=== PATIENT | female | born 1955 | race Caucasian/White ===

== ENCOUNTER 2023-11-12 08:43 | Outpatient (OUT) | payer MEDICARE, SELFPAY ==
--- NOTE | 2023-11-12 08:47 | MM_ITS ---
Patient Name: AKOSUA HENAO MR#: [id number] : 1955 Exam Date: 11/12/2023 Ordering Doctor: DR MICHAEL RUTH M.D. RADIOLOGY REPORT PROCEDURE: MM TOMOSYNTHESIS SCREENING BI COMPARISON: MG MAMM SCREEN [place] W CAD, 04/18/2020. MG MAMM SCREEN 3D [place] CAD, 04/20/2021. INDICATIONS: Screening Calculator Name NCI Breast Cancer Risk Assessment Tool 5 Year Breast Cancer Risk 1.50% Lifetime Breast Cancer Risk 5.20% Personal Breast Cancer No Personal Ovarian Cancer No Treatments None Family Cancers None LOCATION: [facility] BREAST COMPOSITION: Heterogeneously dense,which may obscure small masses. FINDINGS: DIAGNOSTIC CATEGORY 2--BENIGN FINDING. NO CHANGE FROM COMPARISON. Scattered benign-appearing calcifications are present. Scattered benign-appearing lymph nodes are present. RIGHT BREAST: No significant suspicious finding. Stable nodule upper outer quadrant, mid breast LEFT BREAST: No significant suspicious finding. RECOMMENDATIONS: ROUTINE MAMMOGRAM AND CLINICAL EVALUATION IN 12 MONTHS. PLEASE NOTE: A NORMAL MAMMOGRAM DOES NOT EXCLUDE THE POSSIBILITY OF BREAST CANCER. A CLINICALLY SUSPICIOUS PALPABLE LUMP SHOULD BE BIOPSIED. Dictated by: Jared Martin MD on 11/12/2023 at 09:46 Approved by: Jared Martin MD on 11/12/2023 at 09:49
== END 2023-11-12 08:44 | disposition home or self-care (01) ==
LOC: MAMMO 08:43
PROVIDERS: PCP Family Medicine; Visit Provider Family Medicine
DX: Z12.31 Encounter for screening mammogram for malignant neoplasm of breast (principal)
CPT/HCPCS: 77063; 77067

== ENCOUNTER 2024-02-04 13:42 | Emergency (ER) | payer MEDICARE, SELFPAY ==
[2024-02-04] VITALS (14 sets, daily range): BP systolic 160–186; BP diastolic 83–96; PULSE 65–79; TEMP 36.6; O2SAT 94–97; BMI 25.0
--- NOTE | 2024-02-04 14:03 | ECG_ITS ---
[facility] Test Date: 2024-02-04 Pat Name: AKOSUA HENAO Department: Room: - Gender: Female [employer]: : 1955 Requested By: MICHAEL RUTH Order Number: [id number] Reading MD: MEGAN AVILA Measurements Intervals [place] Rate: 69 P: 70 AL: 124 QRS: 74 QRSD: 80 T: 52 QT: 390 QTc: 409 Interpretive Statements 1100 Sinus rhythm 4068 Nonspecific [place] abnormality 9130 borderline ECG No previous ECG available for comparison Electronically Signed On 02-04-2024 23:14:24 EDT by MEGAN AVILA
--- NOTE | 2024-02-04 14:22 | ED_ITS ---
HPI - Seizure General Chief Complaint: Seizure Stated Complaint: SEIZURE Time Seen by Provider: 02/04/24 14:13 Source: patient and family Mode of arrival: walk-in Limitations: no limitations History of Present Illness HPI Narrative: Patient is a 68-year-old female with a history of hypertension who presents to the emergency department for witnessed seizure activity. Her states that they typically lay down for a nap after lunch. Patient heard a clicking noise outside of the door and when the went to investigate, he returned to find the patient in bed having witnessed seizure activity where her right hand was clenched onto her chest and her left hand was clenching the bed sheets, her eyes were rolled back in her head and she was shaking mildly. She had no dental injury or urinary incontinence. On waking, she has no headache, visual changes. She had no falls or injuries. She has had no recent illness. She has been compliant with her Keppra. She sees advanced neurology for regular care. Her last seizure was in 2015 and she has only had 1 previous seizure to that in 2009. 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 She has no focal medical complaints at this time. Related Data Home Medications ?Medication ?Instructions ?Recorded ?Confirmed atorvastatin 20 mg tablet 20 mg PO DAILY 02/04/24 02/04/24 ergocalciferol (vitamin D2) 1,250 50,000 unit PO .COMPLEX 02/04/24 02/04/24 mcg (50,000 unit) capsule levetiracetam 250 mg tablet 250 mg PO TID 02/04/24 02/04/24 levothyroxine 25 mcg tablet 25 mcg PO DAILY 02/04/24 02/04/24 lorazepam 1 mg tablet 1.5 mg PO .COMPLEX 02/04/24 02/04/24 mirabegron 25 mg tablet,extended 25 mg PO DAILY 02/04/24 02/04/24 release 24 hr (Myrbetriq) Allergies Allergy/AdvReac Type Severity Reaction Status Date / Time No Known Drug Allergies Allergy Verified 02/04/24 13:53 Review of Systems ROS Constitutional Denies: fever or chills Eyes Denies: change in vision Ears, nose, mouth, and throat Denies: throat pain or nasal congestion Cardiovascular Denies: chest pain Respiratory Denies: shortness of breath or cough Gastrointestinal Denies: nausea or vomiting Integumentary/Breast Denies: rash Neurological Denies: headache Hematologic/Lymphatic Denies: easy bruising or easy bleeding Exam Narrative Exam Narrative: Gen.: Awake, alert, in no distress Head: Normocephalic, atraumatic ENT: Moist mucous membranes, No dental injury Respiratory: No respiratory distress, lungs clear bilaterally Cardio: Regular rate and rhythm Extremities: Moves extremities equally, no injuries noted Psych: Normal mood and affect Neuro: No focal neuro deficit Skin: Warm, dry, intact Constitutional Vital Signs, click to edit/add: Last Vital Signs Temp 97.9 F 02/04/24 13:53 Pulse 72 02/04/24 15:20 Resp 15 02/04/24 13:53 BP 164/88 H 02/04/24 15:17 Pulse Ox 96 02/04/24 15:17 O2 Del Method Room Air 02/04/24 13:53 Course Vital Signs Vital signs: Vital Signs Temperature 97.9 F 02/04/24 13:53 Pulse Rate 79 02/04/24 13:53 Respiratory Rate 15 02/04/24 13:53 Blood Pressure 186/96 H 02/04/24 13:53 Pulse Oximetry 95 02/04/24 13:53 Oxygen Delivery Method Room Air 02/04/24 13:53 Temperature 97.9 F 02/04/24 13:53 Pulse Rate 72 02/04/24 15:20 Respiratory Rate 15 02/04/24 13:53 Blood Pressure 164/88 H 02/04/24 15:17 Pulse Oximetry 96 02/04/24 15:17 Oxygen Delivery Method Room Air 02/04/24 13:53 MDM - Seizure MDM Narrative Medical decision making narrative: Blood pressure improved on recheck. Remainder of the vital signs are normal.Lab studies within normal limits. Patient with no focal medical complaints in the ER, treated with Keppra bolus, follow-up with the advanced neurology for further instruction. Return to the ER if symptoms change or worsen. Medical Records Attestation: I reviewed the patient's medical records. Lab Data Attestation: I reviewed the patient's lab results. Labs: Lab Results 02/04/24 Range/Units 14:31 WBC 6.3 (4.0-11.0) 10^3/uL RBC 4.99 (4.20-5.40) 10^6/uL Hgb 14.0 (12.0-16.0) g/dL Hct 43.2 (36.0-48.0) % MCV 86.6 (81.0-99.0) fL MCH 28.1 (26.7-34.0) pg MCHC 32.4 (29.9-35.2) g/dL RDW 12.0 (11.0-15.0) % Plt Count 221 (150-450) 10^3/uL MPV 9.5 (9.5-13.5) fL Neut % (Auto) 46.9 (43.0-75.0) % Lymph % (Auto) 39.8 (20.5-60.0) % [place] % (Auto) 10.0 (1.7-12.0) % Eos % (Auto) 2.8 (0.9-7.0) % Baso % (Auto) 0.3 (0.2-2.0) % Neut # (Auto) 3.0 (1.4-6.5) 10^3/uL Lymph # (Auto) 2.5 (1.2-3.8) 10^3/uL [place] # (Auto) 0.6 (0.3-0.8) 10^3/uL Eos # (Auto) 0.2 (0.0-0.7) 10^3/uL Baso # (Auto) 0.0 (0.0-0.1) 10^3/uL Abs Immat Gran (auto) 0.01 (0.00-0.03) 10^3/uL Imm/Tot Granulo (auto) 0.2 (0.0-0.5) % Sodium 144 (136-145) mmol/L Potassium 3.6 (3.5-5.1) mmol/L Chloride 104 (98-107) mmol/L Carbon Dioxide 30.9 (21.0-32.0) mmol/L Anion Gap 12.7 BUN 18.0 (7.0-18.0) mg/dL Creatinine 0.89 (0.55-1.02) mg/dL Est GFR ( Amer) >60 (>=60) Est GFR (Non-Af Amer) >60 (>=60) BUN/Creatinine Ratio 20.2 Glucose 127 H (74-106) mg/dL Calcium 9.6 (8.5-10.1) mg/dL Magnesium 1.9 (1.8-2.4) mg/dL Total Bilirubin 0.4 (0.2-1.0) mg/dL AST 18 (15-37) U/L ALT 22 (14-59) U/L Alkaline Phosphatase 74 (46-116) U/L Total Protein 7.1 (6.4-8.2) g/dL Albumin 3.5 (3.4-5.0) g/dL Globulin 3.6 g/dL Albumin/Globulin Ratio 1.0 Discharge Plan Discharge Stand Alone Forms: Portal Instructions Chief Complaint: Seizure Clinical Impression: Seizure Patient Disposition: Home, Self-Care Time of Disposition Decision: 15:22 Condition: Good Prescriptions / Home Meds: No Action atorvastatin 20 mg tablet 20 mg PO DAILY ergocalciferol (vitamin D2) 1,250 mcg (50,000 unit) capsule 50,000 unit PO .COMPLEX Rx Instructions: 50,000 units orally once a week; levetiracetam 250 mg tablet 250 mg PO TID levothyroxine 25 mcg tablet 25 mcg PO DAILY lorazepam 1 mg tablet 1.5 mg PO .COMPLEX Rx Instructions: 1.5 mg orally 1.5 mg at bedtime; Myrbetriq 25 mg tablet extended release 24 hr 25 mg PO DAILY Print Language: Lithuanian Instructions: Nonepileptic Seizures (ED) Referrals: Elliott Lema DO [Physician] - 1 week MICHAEL RUTH [Primary Care Provider] - 1 week
--- NOTE | 2024-02-04 14:41 | PC.NURSE ---
pt AxOx4 at this time. per pt's , pt and him were in bedroom getting reafdy to take a nap and pt started to have seizure. Eyes rolled into back of head, R arm was clenched in decorticate and L arm down by leg and upper half of body was shaking. Denies any injuries during this or loss of bowel/bladder. Pt's last seizure was back in 2009. Sees Dr Sullivan for neurology.
[2024-02-04 14:44] LABS: Basophils Percent Auto 0.3 % (0.2-2.0); Eosinophils Absolute Auto 0.2 10^3/uL (0.0-0.7); Eosinophils Percent Auto 2.8 % (0.9-7.0); Hematocrit 43.2 % (36.0-48.0); Immature Granulocytes Abs Auto 0.01 10^3/uL (0.00-0.03); Immature Granulocytes Pct Auto 0.2 % (0.0-0.5); Lymphocytes Absolute Auto 2.5 10^3/uL (1.2-3.8); Lymphocytes Percent Auto 39.8 % (20.5-60.0); Mean Corpuscular HGB Conc 32.4 g/dL (29.9-35.2); Mean Corpuscular Hemoglobin 28.1 pg (26.7-34.0); Mean Corpuscular Volume 86.6 fL (81.0-99.0); Mean Platelet Volume 9.5 fL (9.5-13.5); Monocytes Absolute Auto 0.6 10^3/uL (0.3-0.8); Neutrophils Percent Auto 46.9 % (43.0-75.0); Platelet Count 221 10^3/uL (150-450); Red Blood Count 4.99 10^6/uL (4.20-5.40); White Blood Count 6.3 10^3/uL (4.0-11.0)
[2024-02-04] MEDS: LEVETIRACETAM 1,000 MG in 0.9 % SODIUM CHLORIDE 100 ML 440 MG IV (14:50)
[2024-02-04 15:06] LABS: Alanine Aminotransferase 22 U/L (14-59); Albumin Level 3.5 g/dL (3.4-5.0); Alkaline Phosphatase 74 U/L (46-116); Anion Gap 12.7; Aspartate Amino Transferase 18 U/L (15-37); BUN Creatinine Ratio 20.2; Bilirubin Total 0.4 mg/dL (0.2-1.0); Calcium 9.6 mg/dL (8.5-10.1); Carbon Dioxide 30.9 mmol/L (21.0-32.0); Chloride 104 mmol/L (98-107); Estimated GFR (African America >60 (>=60); Estimated GFR (Non-African Ame >60 (>=60); Globulin 3.6 g/dL; Glucose 127 mg/dL (74-106); Magnesium 1.9 mg/dL (1.8-2.4); Potassium 3.6 mmol/L (3.5-5.1); Sodium 144 mmol/L (136-145); Total Protein 7.1 g/dL (6.4-8.2)
[2024-02-07 13:11] LABS: Levetiracetam (Keppra), S 2.8 ug/mL (10.0-40.0)
--- NOTE | 2024-02-08 15:33 | PC.NURSE ---
02/08/24 1533 pt keppra level reviewed by dr martinez order to fax to pcp, did as requested. dr valentine faxed results. John Bauman RN.
== END 2024-02-04 15:45 | disposition home or self-care (01) ==
PROVIDERS: Physician Assistant; Emergency Provider Emergency Medicine Emergency Medical Services; PCP Family Medicine
DX: G40.909 Epilepsy, unspecified, not intractable, without status epilepticus (principal); I10 Essential (primary) hypertension; Z87.820 Personal history of traumatic brain injury; Z79.899 Other long term (current) drug therapy; Z79.890 Hormone replacement therapy
CPT/HCPCS: 36415; 80053; 80177; 83735; 85025; 93005; 96365; 99284

== ENCOUNTER 2025-02-11 10:02 | Outpatient (OUT) | payer MEDICARE, SELFPAY ==
--- OUTSIDE RECORDS SUMMARY | 2025-02-11 10:06 | XMS_ITS | CCD ---
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 IPD, CMP, TSH reflex FT4, CBCAD, VITD #### [facility] [address], [place] [id number] Erythrocyte distribution width (RBC) [Ratio] 12.3 % Normal 11.0-15.0 [facility] Comment on above: Performed By: #### L IPD, CMP, TSH reflex FT4, CBCAD, VITD #### [facility] [address], [place] [id number] Hematocrit (Bld) [Volume fraction] 43.2 % Normal 35.0-47.0 [facility] Comment on above: Performed By: #### L IPD, CMP, TSH reflex FT4, CBCAD, VITD #### [facility] [address], [place] [id number] Hemoglobin (Bld) [Mass/Vol] 14.1 g/dL Normal 11.6-15.5 [facility] Comment on above: Performed By: #### L IPD, CMP, TSH reflex FT4, CBCAD, VITD #### [facility] [address], [place] [id number] Lymphocytes (Bld) [#/Vol] 2.8 10*3/uL Normal 0.9-3.9 [facility] Comment on above: Performed By: #### L IPD, CMP, TSH reflex FT4, CBCAD, VITD #### [facility] [address], [place] [id number] Lymphocytes/100 WBC (Bld) 41.3 % Normal [facility] Comment on above: Performed By: #### L IPD, CMP, TSH reflex FT4, CBCAD, VITD #### [facility] [address], [place] [id number] MCH (RBC) [Entitic mass] 28.0 pg Normal 27.0-33.0 [facility] Comment on above: Performed By: #### L IPD, CMP, TSH reflex FT4, CBCAD, VITD #### [facility] [address], [place] [id number] MCHC (RBC) [Mass/Vol] 32.6 g/dL Normal 32.0-36.0 [facility] Comment on above: Performed By: #### L IPD, CMP, TSH reflex FT4, CBCAD, VITD #### [facility] [address], [place] [id number] MCV (RBC) [Entitic vol] 86 fL Normal 80-100 [facility] Comment on above: Performed By: #### L IPD, CMP, TSH reflex FT4, CBCAD, VITD #### [facility] [address], [place] [id number] Monocytes (Bld) [#/Vol] 0.6 10*3/uL Normal 0.2-0.9 [facility] Comment on above: Performed By: #### L IPD, CMP, TSH reflex FT4, CBCAD, VITD #### [facility] [address], [place] [id number] Monocytes/100 WBC (Bld) 9.0 % Normal [facility] Comment on above: Performed By: #### L IPD, CMP, TSH reflex FT4, CBCAD, VITD #### [facility] [address], [place] [id number] Neutrophils (Bld) [#/Vol] 3.2 10*3/uL Normal 1.5-7.8 [facility] Comment on above: Performed By: #### L IPD, CMP, TSH reflex FT4, CBCAD, VITD #### [facility] [address], [place] [id number] Neutrophils/100 WBC (Bld) 46.2 % Normal [facility] Comment on above: Performed By: #### L IPD, CMP, TSH reflex FT4, CBCAD, VITD #### [facility] [address], [place] [id number] Platelet mean volume (Bld) [Entitic vol] 9.80 fL Normal 7.50-12.50 [facility] Specialist Comment on above: Performed By: #### L IPD, CMP, TSH reflex FT4, CBCAD, VITD #### [facility] [address], [place] [id number] Platelets (Bld) [#/Vol] 272 10*3/uL Normal 140-400 [facility] Comment on above: Performed By: #### L IPD, CMP, TSH reflex FT4, CBCAD, VITD #### [facility] [address], [place] [id number] RBC (Bld) [#/Vol] 5.03 10*6/uL Normal 3.90-5.20 [facility] [facility] Comment on above: Performed By: #### L IPD, CMP, TSH reflex FT4, CBCAD, VITD #### [facility] [address], [place] [id number] RDW-SD 38.5 fL Normal 37.0-50.0 [facility] Comment on above: Performed By: #### L IPD, CMP, TSH reflex FT4, CBCAD, VITD #### [facility] [address], [place] [id number] WBC (Bld) [#/Vol] 6.9 10*3/uL Normal 3.8-11.0 [facility] Concession Manager Comment on above: Performed By: #### L IPD, CMP, TSH reflex FT4, CBCAD, VITD #### [facility] [address], [place] [id number] Comprehensive Metabolic Pane [facility] 01-05-2022 Albumin [Mass/Vol] 4.6 g/dL Normal 3.6-5.1 [facility] [employer] Manager Comment on above: Performed By: #### L IPD, CMP, TSH reflex FT4, CBCAD, VITD #### [facility] [address], [place] [id number] Albumin/Globulin [Mass ratio] 1.9 {ratio} Normal 1.0-2.5 [facility] Comment on above: Performed By: #### L IPD, CMP, TSH reflex FT4, CBCAD, VITD #### [facility] [address], [place] [id number] ALP [Catalytic activity/Vol] 72 U/L Normal 35-119 [facility] Special[facility] Comment on above: Performed By: #### L IPD, CMP, TSH reflex FT4, CBCAD, VITD #### [facility] [address], [place] [id number] ALT [Catalytic activity/Vol] 15 U/L Normal 6-33 [facility] Comment on above: Result Comment: 09/27 Female reference range changed. Performed By: #### L IPD, CMP, TSH reflex FT4, CBCAD, VITD #### [facility] [address], [place] [id number] Anion gap [Moles/Vol] 17 mmol/L Normal 12-20 [facility] Comment on above: Result Comment: Effe ctive 11/02/2019 reference range changed. Performed By: #### L IPD, CMP, TSH reflex FT4, CBCAD, VITD #### [facility] [address], [place] [id number] AST [Catalytic activity/Vol] 21 U/L Normal 9-34 [facility] Comment on above: Performed By: #### L IPD, CMP, TSH reflex FT4, CBCAD, VITD #### [facility] [address], [place] [id number] Bilirubin [Mass/Vol] 0.48 mg/dL Normal 0.30-1.20 [place] Comment on above: Performed By: #### L IPD, CMP, TSH reflex FT4, CBCAD, VITD #### [facility] [address], [place] [id number] BUN/CREA 30 Ratio High 6-22 [facility] Comment on above: Performed By: #### L IPD, CMP, TSH reflex FT4, CBCAD, VITD #### [facility] [address], [place] [id number] Calcium [Mass/Vol] 9.6 mg/dL Normal 8.6-10.2 [facility] Comment on above: Performed By: #### L IPD, CMP, TSH reflex FT4, CBCAD, VITD #### [facility] [address], [place] [id number] Chloride [Moles/Vol] 106 mmol/L Normal 98-107 [place] Comment on above: Performed By: #### L IPD, CMP, TSH reflex FT4, CBCAD, VITD #### [facility] [address], [place] [id number] CO2 [Moles/Vol] 26 mmol/L Normal 20-31 [facility] Special[facility] Comment on above: Performed By: #### L IPD, CMP, TSH reflex FT4, CBCAD, VITD #### [facility] [address], [place] [id number] Creatinine [Mass/Vol] 0.8 mg/dL Normal 0.6-1.4 [facility] Comment on above: Performed By: #### L IPD, CMP, TSH reflex FT4, CBCAD, VITD #### [facility] [address], [place] [id number] eGFRAA 94 mL/min/1.73m2 Normal >60 [facility] Specialist Comment on above: Performed By: #### L IPD, CMP, TSH reflex FT4, CBCAD, VITD #### [facility] [address], [place] [id number] eGFRNAA 78 mL/min/1.73m2 Normal >60 [facility] Specialist Comment on above: Performed By: #### L IPD, CMP, TSH reflex FT4, CBCAD, VITD #### [facility] [address], [place] [id number] Globulin (S) [Mass/Vol] 2.4 g/dL Normal 1.9-3.7 [facility] Special[facility] Comment on above: Performed By: #### L IPD, CMP, TSH reflex FT4, CBCAD, VITD #### [facility] [address], [place] [id number] Glucose [Mass/Vol] 105 mg/dL High 65-99 [facility] Comment on above: Result Comment: For FASTING Glucose --- ADA reference ranges: Normal 65-99 mg/dl Prediabetes 100-125 Diabetes >/= 126 Performed By: #### L IPD, CMP, TSH reflex FT4, CBCAD, VITD #### [facility] [address], [place] [id number] Potassium [Moles/Vol] 4.1 mmol/L Normal 3.5-5.5 [facility] Comment on above: Performed By: #### L IPD, CMP, TSH reflex FT4, CBCAD, VITD #### [facility] [address], [place] [id number] Protein [Mass/Vol] 7.0 g/dL Normal 6.1-8.1 [facility] [place] [facility] [employer] [facility] Comment on above: Performed By: #### L IPD, CMP, TSH reflex FT4, CBCAD, VITD #### [facility] [address], [place] [id number] Sodium [Moles/Vol] 144 mmol/L Normal 135-146 [facility] [place] [facility] [employer] [facility] Comment on above: Performed By: #### L IPD, CMP, TSH reflex FT4, CBCAD, VITD #### [facility] [address], [place] [id number] Urea nitrogen [Mass/Vol] 23 mg/dL Normal 7-25 [facility] Comment on above: Performed By: #### L IPD, CMP, TSH reflex FT4, CBCAD, VITD #### [facility] [address], [place] [id number] Lipid Panelon 01-05-2022 Cholesterol [Mass/Vol] 185 mg/dL Normal 125-200 [facility] Comment on above: Result Comment: Low risk < 200mg/dL Borderline risk 201-239 mg/dl High risk > or equal to 240 Performed By: #### L IPD, CMP, TSH reflex FT4, CBCAD, VITD #### [facility] [address], [place] [id number] Cholesterol in HDL [Mass/Vol] 70 mg/dL Normal >40 [facility] Comment on above: Result Comment: High Cardiovascular Risk HDL <40 mg/dL Low Cardiovascular Risk HDL > or equal to 60 mg/dl Performed By: #### L IPD, CMP, TSH reflex FT4, CBCAD, VITD #### [facility] [address], [place] [id number] Cholesterol in LDL [Mass/Vol] 103 mg/dL Normal [facility] [facility] Comment on above: Result Comment: LDL ATP III CLASSIFICATION LDL less than 100 mg/dl Optimal LDL 100-129 mg/dl Near or above optimal LDL 130-159 Borderline high LDL 160-189 High LDL greater than 189 mg/dl Very High Performed By: #### L IPD, CMP, TSH reflex FT4, CBCAD, VITD #### [facility] [address], [place] [id number] Cholesterol in VLDL [Mass/Vol] 12 mg/dL Normal [facility] Comment on above: Performed By: #### L IPD, CMP, TSH reflex FT4, CBCAD, VITD #### [facility] [address], [place] [id number] Cholesterol.total/Ch olesterol in HDL [Mass ratio] 3 {ratio} Normal [facility] Comment on above: Performed By: #### L IPD, CMP, TSH reflex FT4, CBCAD, VITD #### [facility] [address], [place] [id number] Triglyceride [Mass/Vol] 58 mg/dL Normal 30-150 [facility] Specialist Comment on above: Result Comment: TRIG ATPIII CLASSIFICATIONS TRIG less than 150 mg/dl Normal TRIG 150-199 mg/dl Borderline High TRIG 200-500 mg/dl High TRIG greather than 500 mg/dl Very High Performed By: #### L IPD, CMP, TSH reflex FT4, CBCAD, VITD #### [facility] [address], [place] [id number] TSH w/ Reflex to Free T4on 0 01-05-2022 TSH 4.340 uIU/mL Normal 0.400-4.500 [facility] Specialist Comment on above: Performed By: #### L IPD, CMP, TSH reflex FT4, CBCAD, VITD #### [facility] [address], [place] [id number] Vitamin D 25-OHon 01-05-2022 VIT D 25 OH 88 ng/ml Normal >29 [facility] Specialist Comment on above: Result Comment: Meri min D Status Deficiency <20 ng/mL Insufficiency 20-29 ng/mL Optimal 30-100 ng/mL Possible Toxicity >=150 ng/mL Performed By: #### L IPD, CMP, TSH reflex FT4, CBCAD, VITD #### [facility] [address], [place] [id number] Vital Signs Date Time Vital Sign Value Performing Clinician Facility 01-21-2025 08:06-0400 Body height 167.6 cm Vikram Sullivan MD Work Phone: [facility] 01-21-2025 08:06-0400 Body mass index (BMI) [Ratio] 24.37 kg/m2 Vikram Sullivan MD Work Phone: [facility] 01-21-2025 08:06-0400 Body weight 68.49 kg Vikram Sullivan MD Work Phone: [facility] 01-21-2025 08:06-0400 Diastolic blood pressure 86 mm[Hg] Vikram Sullivan MD Work Phone: [facility] 01-21-2025 08:06-0400 Systolic blood pressure 130 mm[Hg] Vikram Sullivan MD Work Phone: [facility] 10-12-2024 11:22-0500 Body mass index (BMI) [Ratio] 24.05 kg/m2 Vikram Sullivan MD Work Phone: [facility] 10-12-2024 11:22-0500 Body weight 67.59 kg Vikram Sullivan MD Work Phone: [facility] 10-12-2024 11:22-0500 Diastolic blood pressure 87 mm[Hg] Vikram Sullivan MD Work Phone: [facility] 10-12-2024 11:22-0500 Heart rate 65 /min Vikram Sullivan MD Work Phone: [facility] 10-12-2024 11:22-0500 Systolic blood pressure 146 mm[Hg] Vikram Sullivan MD Work Phone: [facility] 09-08-2024 11:01-0500 Body mass index (BMI) [Ratio] 23.4 kg/m2 Lobo Cisneros MD Work Phone: [facility] 09-08-2024 11:01-0500 Body weight 65.77 kg Lobo Cisneros MD Work Phone: [facility] 09-08-2024 11:01-0500 Diastolic blood pressure 76 mm[Hg] Lobo Cisneros MD Work Phone: [facility] 09-08-2024 11:01-0500 Systolic blood pressure 120 mm[Hg] Lobo Cisneros MD Work Phone: [facility] 08-10-2024 09:26-0400 Body height 167.6 cm Naeem Ruth MD Work Phone: [facility] 08-10-2024 09:26-0400 Body mass index (BMI) [Ratio] 23.4 kg/m2 Naeem Ruth MD Work Phone: [facility] 08-10-2024 09:26-0400 Body weight 65.77 kg Naeem Ruth MD Work Phone: [facility] 08-10-2024 09:26-0400 Diastolic blood pressure 88 mm[Hg] Naeem Ruth MD Work Phone: [facility] 08-10-2024 09:26-0400 Heart rate 63 /min Naeem Ruth MD Work Phone: [facility] 08-10-2024 09:26-0400 SaO2% (BldA) [Mass fraction] 94 % Naeem Ruth MD Work Phone: [facility] 08-10-2024 09:26-0400 Systolic blood pressure 138 mm[Hg] Naeem Ruth MD Work Phone: [facility] 07-09-2024 10:28-0400 Body height 167.6 cm Vikram Sullivan MD Work Phone: [facility] 07-09-2024 10:28-0400 Body mass index (BMI) [Ratio] 23.73 kg/m2 Vikram Sullivan MD Work Phone: [facility] 07-09-2024 10:28-0400 Body weight 66.68 kg Vikram Sullivan MD Work Phone: [facility] 07-09-2024 10:28-0400 Diastolic blood pressure 82 mm[Hg] Vikram Sullivan MD Work Phone: [facility] 07-09-2024 10:28-0400 Systolic blood pressure 116 mm[Hg] Vikram Sullivan MD Work Phone: [facility] 06-16-2024 13:30-0400 Body height 167.6 cm Naeem Ruth MD Work Phone: [facility] 06-16-2024 13:30-0400 Body mass index (BMI) [Ratio] 23.73 kg/m2 Naeem Ruth MD Work Phone: [facility] 06-16-2024 13:30-0400 Body weight 66.68 kg Naeem Ruth MD Work Phone: [facility] 06-16-2024 13:30-0400 Diastolic blood pressure 72 mm[Hg] Naeem Ruth MD Work Phone: [facility] 06-16-2024 13:30-0400 Heart rate 66 /min Naeem Ruth MD Work Phone: [facility] 06-16-2024 13:30-0400 SaO2% (BldA) [Mass fraction] 97 % Naeem Ruth MD Work Phone: [facility] 06-16-2024 13:30-0400 Systolic blood pressure 132 mm[Hg] Naeem Ruth MD Work Phone: [facility] 08-30-2023 11:30-0400 Diastolic blood pressure 84 mm[Hg] MD Lauryn Owens Work Phone: [facility] 08-30-2023 11:30-0400 Heart rate 60 /min MD Lauryn Owens Work Phone: [facility] 08-30-2023 11:30-0400 Respiratory rate 16 /min MD Lauryn Owens Work Phone: [facility] 08-30-2023 11:30-0400 SaO2% (BldA) [Mass fraction] 98 % MD Lauryn Owens Work Phone: [facility] 08-30-2023 11:30-0400 Systolic blood pressure 141 mm[Hg] MD Lauryn Owens Work Phone: [facility] 08-30-2023 08:33-0400 Body height 167.64 cm MD Lauryn Owens Work Phone: [facility] 08-30-2023 08:33-0400 Body weight 66.67 kg MD Lauryn Owens Work Phone: [facility] 06-13-2023 10:15-0400 Diastolic blood pressure 87 mm[Hg] MD Lauryn Owens Work Phone: [facility] 06-13-2023 10:15-0400 Heart rate 61 /min MD Lauryn Owens Work Phone: [facility] 06-13-2023 10:15-0400 Respiratory rate 16 /min MD Lauryn Owens Work Phone: [facility] 06-13-2023 10:15-0400 SaO2% (BldA) [Mass fraction] 97 % MD Lauryn Owens Work Phone: [facility] 06-13-2023 10:15-0400 Systolic blood pressure 148 mm[Hg] MD Lauryn Owens Work Phone: [facility] 06-13-2023 08:22-0400 Body height 167.64 cm MD Lauryn Owens Work Phone: [facility] 06-13-2023 08:22-0400 Body weight 68.03 kg MD Lauryn Owens Work Phone: [facility] Encounters Encounter Date Encounter Type Care Provider Facility Start: 02-09-2025 End: 02-09-2025 Telephone encounter Naeem Ruth MD Work Phone: [facility] Start: 01-21-2025 End: 01-21-2025 Office outpatient visit 15 minutes Sunita Barragan MD Work Phone: [facility] Comment on above: Seborrheic keratosis (Primary Dx); Lentigines; Capillary angioma; Seborrheic keratosis, inflamed; Neoplasm of unspecified behavior of bone, soft tissue, and skin Start: 01-21-2025 End: 01-21-2025 ambulatory SUNITA BARRAGAN Not Available Start: 01-21-2025 End: 01-21-2025 Office outpatient visit 25 minutes Vikram Sullivan MD Work Phone: [facility] Comment on above: History of traumatic brain injury (Primary Dx); Partial idiopathic epilepsy with seizures of localized onset, not intractable, without status epilepticus; Migraine without status migrainosus, not intractable, unspecified migraine type (CMS/HCC) Start: 01-21-2025 End: 01-21-2025 ambulatory VIKRAM SULLIVAN Not Available Start: 01-18-2025 End: 01-18-2025 ambulatory NAEEM RUTH Not Available Start: 10-12-2024 End: 10-12-2024 Bamboo flowsheet Vikram Sullivan MD Work Phone: [facility] Start: 10-12-2024 End: 10-12-2024 Bamboo flowsheet Vikram Sullivan MD Work Phone: [facility] Start: 10-12-2024 End: 10-12-2024 Office outpatient visit 25 minutes Vikram Sullivan MD Work Phone: [facility] Comment on above: History of traumatic brain injury (Primary Dx); Partial idiopathic epilepsy with seizures of localized onset, not intractable, without status epilepticus (HCC) (CMS/HCC); Migraine without status migrainosus, not intractable, unspecified migraine type (CMS/HCC) Start: 10-12-2024 End: 10-12-2024 ambulatory VIKRAM SULLIVAN Not Available Start: 09-08-2024 End: 09-08-2024 Bamboo flowsheet Lobo Cisneros MD Work Phone: [facility] Start: 09-08-2024 End: 09-08-2024 Bamboo flowsheet Lobo Cisneros MD Work Phone: [facility] Start: 09-08-2024 End: 09-08-2024 Patient encounter procedure Lobo Cisneros MD Work Phone: [facility] Comment on above: Well woman exam with routine gynecological exam; Cervical cancer screening; Other screening mammogram Start: 09-08-2024 End: 09-08-2024 ambulatory LOBO CISNEROS Not Available Start: 08-10-2024 End: 08-10-2024 Office outpatient visit 25 minutes Naeem Ruth MD Work Phone: [facility] Comment on above: Osteopenia of both h ips (Primary Dx); Hypothyroidism, unspecified type (CMS/HCC) Start: 08-10-2024 End: 08-10-2024 ambulatory NAEEM RUTH Not Available Start: 08-03-2024 End: 08-03-2024 Refill Vikram Sullivan MD Work Phone: [facility] Comment on above: BPPV (benign paroxys mal positional vertigo), right; Nonintractable epilepsy without status epilepticus, unspecified epilepsy type (CMS/HCC); Insomnia due to medical condition Start: 07-09-2024 End: 07-09-2024 [employer] Vikram Sullivan MD Work Phone: [facility] Start: 07-09-2024 End: 07-09-2024 [employer] Sullivan MD Work Phone: [facility] Start: 07-09-2024 End: 07-09-2024 Office outpatient visit 25 minutes Vikram Sullivan MD Work Phone: [facility] Comment on above: History of traumatic brain injury; Localization-related (focal) (partial) symptomatic epilepsy and epileptic syndromes with simple partial seizures, intractable, without status epilepticus (CMS/HCC); Dizziness; Migraine without status migrainosus, not intractable, unspecified migraine type (CMS/HCC) Start: 07-09-2024 End: 07-09-2024 ambulatory VIKRAM W SULLIVAN Not Available Start: 06-16-2024 End: 06-16-2024 Office outpatient visit 25 minutes Naeem Ruth MD Work Phone: [facility] Comment on above: Osteopenia of both h ips (Primary Dx); Dizziness Start: 06-16-2024 End: 06-16-2024 ambulatory RUGEN M FARAZ Not Available Start: 06-02-2024 End: 06-02-2024 ambulatory RUGEN M FARAZ Not Available Start: 04-27-2024 End: 04-27-2024 ambulatory RUGEN M FARAZ Not Available Start: 04-06-2024 End: 04-06-2024 ambulatory VIKRAM W SULLIVAN Not Available Start: 02-17-2024 End: 02-17-2024 ambulatory VIKRAM W SULLIVAN Not Available Start: 02-06-2024 End: 02-06-2024 ambulatory VIKRAM W SULLIVAN Not Available Start: 08-30-2023 End: 08-30-2023 ambulatory Imad Asaad Facility:[facility] Start: 08-30-2023 End: 08-30-2023 Admission to same day surgery center MD Lauryn Owens Work Phone: [facility] Work Phone: Start: 08-30-2023 End: 08-30-2023 ambulatory NON STAFF [facility] Work Phone: Start: 06-13-2023 End: 06-13-2023 ambulatory Imad Asaad Facility:[facility] Start: 06-13-2023 End: 06-13-2023 Admission to same day surgery center MD Lauryn Owens Work Phone: [facility] Work Phone: Start: 06-13-2023 End: 06-13-2023 ambulatory NON STAFF [facility] Work Phone: Start: 02-06-2023 End: 02-07-[address] DOCTOR SORTO Facility:[facility]1 Procedures Date Procedure Procedure Detail Performing Clinician Start: 01-21-2025 CRYOTHERAPY SKIN LESION Sunita Barragan MD Work Phone: Start: 01-21-2025 SKIN / NAIL BIOPSY Uche Barragan MD Work Phone: Start: 09-08-2024 Cytp c/v auto thin l yr prepj scr mnl rescr phys Lobo Cisneros MD Work Phone: Start: 11-12-2023 Mammography Naeem Ruth MD Work Phone: Start: 08-30-2023 End: 08-30-2023 Colonoscopy MD Lauryn Owens Work Phone: Start: 06-13-2023 Screening colonoscopy Jessica Owens Work Phone: Start: 06-13-2023 Colonoscopy Sunita jade MD Work Phone: Plan of Treatment Date Care Activity Detail Author Start: 08-30-2033 Screening for malignant neoplasm of colon [facility] Start: 06-13-2033 Screening for malignant neoplasm of colon [facility] Start: 01-25-2026 End: 01-25-2026 Patient encounter procedure 01/25/2026 9:20 AM EDT Office Visit [facility] [address] [place] [address] Sunita Barragan MD [address] [place], [place] [id number] [facility] Start: 05-03-2025 End: 05-03-2025 Patient encounter procedure 05/03/2025 9:00 AM EDT Office Visit [facility] [address] [place] [id number] Naeem Ruth MD [address] [place] [address] [facility] Start: 04-27-2025 Medicare Annual Wellness (AWV) Medicare Annual Wellness (AWV) [facility] Start: 04-23-2025 End: 04-23-2025 Patient encounter procedure 04/23/2025 8:30 AM EDT Office Visit [facility] [address] [place] [address] Vikram Sullivan MD [address] [facility] [address] [place] [id number] [facility] Start: 02-19-2025 End: 02-19-2025 Professional / ancillary services management 02/19/2025 5:00 PM EDT Ancillary Procedure [facility] [place] [address] [place] [address] [facility] [place] Start: 01-21-2025 End: 01-21-2026 MR Brain WO and W contrast IV MR brain w and wo contrast routine Imaging Routine Partial idiopathic epilepsy with seizures of localized onset, not intractable, without status epilepticus Migraine without status migrainosus, not intractable, unspecified migraine type (CMS/HCC) History of traumatic brain injury Expected: 01/21/2025, Expires: 01/21/2026 [facility] Work Phone: Comment on above: Expected: 01/21/2025, Expires: Start: 01-13-2025 End: 01-13-2025 Patient encounter procedure 01/13/2025 11:00 AM EDT Office Visit [facility] [address] [facility] [address] [place] [address] Vikram Sullivan MD [address] [facility] [address] [place] [id number] [facility] Start: 11-13-2024 End: 11-04-2025 DBT Breast - bilateral screening Bilateral screening mammogram with tomosynthesis Imaging Routine Other screening mammogram Expected: 11/13/2024, Expires: 11/04/2025 [facility] Work Phone: Comment on above: Expected: 11/13/2024, Expires: Start: 11-12-2024 Screening for malignant neoplasm of breast Mammogram [facility] Start: 10-12-2024 End: 10-12-2024 Patient encounter procedure [facility] Comment on above: Arrived Start: 09-08-2024 End: 09-08-2024 Patient encounter procedure 09/08/2024 11:30 AM EST Office Visit [facility] [address] [place] [id number] Lobo Cisneros MD [address] [place] [address] [facility] Start: 07-09-2024 End: 07-09-2024 Patient encounter procedure [facility] Comment on above: Arrived Start: 06-28-2024 Influenza vaccination Influenza Vaccine (#1) [facility] Start: 08-30-2023 [facility] Start: 06-13-2023 [facility] Start: 1955 Screening for malignant neoplasm of colon [facility] Dermatopathology exam Dermatopat hology exam Pathology and Cytology Timed Neoplasm of unspecified behavior of bone, soft tissue, and skin Release Upon Ordering for 1 Occurrences starting 01/21/2025 [facility] Work Phone: Comment on above: Release Upon Ordering for 1 Occurrences starting 01/21/2025 Patient Education [facility] Work Phone: Immunizations Immunization Date Immunization Notes Care Provider Fa cili 08-04-2024 Pfizer Purple Cap SARS-CoV-2 Vaccination Naeem Ruth MD Work Phone: [facility] 08-03-2024 Seasonal trivalent influenza vaccine, adjuvanted, preservative free Sunita Barragan MD Work Phone: [facility] 08-08-2023 Influenza, Seasonal, Quadrivalent, Adjuvanted Naeem Ruth MD Work Phone: [facility] 08-08-2023 Pfizer Nava Cap SARS-CoV-2 Vaccination Naeem Ruth MD Work Phone: [facility] Work Phone: 08-08-2023 influenza virus vacc ine, unspecified formulation Naeem Ruth MD Work Phone: [facility] 08-27-2022 Pneumococcal Conjuga te PCV 20 Naeem Ruth MD Work Phone: [facility] 08-13-2022 Influenza, Seasonal, Quadrivalent, Adjuvanted Naeem Ruth MD Work Phone: [facility] 08-13-2022 Seasonal, trivalent, recombinant, injectable influenza vaccine, preservative free Naeem Ruth MD Work Phone: [facility] 02-25-2022 Pfizer Purple Cap SARS-CoV-2 Vaccination Naeem Ruth MD Work Phone: [facility] 12-28-2021 pneumococcal polysaccharide vaccine, 23 valent Naeem Ruth MD Work Phone: [facility] 09-19-2021 influenza, injectabl e, quadrivalent, contains preservative Naeem Ruth MD Work Phone: [facility] 07-24-2021 Influenza, injectabl e, Madin [place] Canine Kidney, preservative free, quadrivalent Naeem Ruth MD Work Phone: [facility] 07-11-2020 influenza, injectabl e, quadrivalent, preservative free Naeem Ruth MD Work Phone: [facility] 07-28-2019 Influenza, injectabl e, Madin [place] Canine Kidney, preservative free, quadrivalent Naeem Ruth MD Work Phone: [facility] 07-28-2019 seasonal influenza, intradermal, preservative free Naeem Ruth MD Work Phone: [facility] 08-08-2018 Influenza, injectabl e, Madin [place] Canine Kidney, preservative free, quadrivalent Naeem Ruth MD Work Phone: [facility] 08-08-2018 seasonal influenza, intradermal, preservative free Naeem Ruth MD Work Phone: [facility] 08-28-2017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 visit, subsequent Hypothyroidism, unspecified type (CMS/HCC) Pure hypercholesterolemia (CMS/HCC) Pure hypercholesterolemia Vitamin D deficiency Estrogen deficiency Other ovarian failure Osteopenia of both hips- Primary Dizziness Dizziness and giddiness Osteopenia of both hips- Primary Hypothyroidism, unspecified type (CMS/HCC) History of traumatic brain injury- Primary Personal history of traumatic brain injury Partial idiopathic epilepsy with seizures of localized onset, not intractable, without status epilepticus Migraine without status migrainosus, not intractable, unspecified migraine type (CMS/HCC) [facility] Diagnosis Nonintractable epilepsy without status epilepticus, unspecified epilepsy type (CMS/HCC)- Primary Encounter for screening mammogram for malignant neoplasm of breast Acquired hypothyroidism (CMS/HCC) Unspecified hypothyroidism Anxiety Anxiety state, unspecified Pure hypercholesterolemia (CMS/HCC) Pure hypercholesterolemia Routine general medical examination at health care facility- Primary Routine general medical examination at a health care facility Abnormal glucose tolerance test Impaired glucose tolerance test Benign essential hypertension (CMS/HCC) Essential hypertension, benign Medicare annual wellness visit, subsequent Hypothyroidism, unspecified type (CMS/HCC) Pure hypercholesterolemia (CMS/HCC) Pure hypercholesterolemia Vitamin D deficiency Estrogen deficiency Other ovarian failure Osteopenia of both hips- Primary Dizziness Dizziness and giddiness Osteopenia of both hips- Primary Hypothyroidism, unspecified type (CMS/HCC) Acute back pain, unspecified back location, unspecified back pain laterality- Primary [facility] Author Lauryn Owens [facility] June 13, 2023 9:40am Note Date/Time June 13, 2023 9: 19am [facility] [address] [place] [address] Gastroenterology H&P Signed Patient: Gallito Fernandez MR#: [id number] : 1955 Acct:[id number] Age/Sex: 67 / F Adm Date: 3 Loc: Room: Type: [facility] Attending Dr: Lauryn Owens MD Copies to: NON STAFF Lauryn Owens MD~ Date of Service: 06/13/2023 HISTORY & PHYSICAL: Patient's history with special attention to the cardiovascular, pulmonary systems and the current problem was reviewed with the patient immediately prior to the procedure. Present medications and doses reviewed in the EMR. Allergies and pertinent laboratory tests were also reviewedat this time in the EMR. The physical examination, as below, was then performed. Indication, assessment and HPI: 67-year-old female here for screening colonoscopy Family history of GI malignancy? No PHYSICAL EXAMINATION Mouth and Pharynx : Moist mucus membranes, normal dentition Cardiac: Regular rate, regular rhythm Pulmonary: Clear to auscultation bilaterally, no wheezing Neurological: Alert and oriented x3, no focal deficits noted Abdomen: Abdomen soft, non-tender REVIEW OF SYSTEMS Constitutional: Denies malaise, fevers Cardiovascular: Denies chest pain, palpitations Respiratory: Denies shortness of breath, wheezing Gastrointestinal: Per HPI Genitourinary: Denies dysuria, polyuria Musculoskeletal: Denies joint swelling, joint stiffness Neurological: Denies numbness, tingling Integumentary: Denies rashes, skin lesions Endocrine: Denies fatigue, weight loss Written informed consent obtained from the patient. Risks (including but not limited to perforation, infection, bloating, bleeding, need for emergent surgeryand loss of life), benefits and alternatives explained and questions answered. The patient verbalized understanding. Based on history patient is an appropriate candidate for the procedure. Lauryn Owens M.D. Documented By: Lauryn Owens MD 06/13/23 0917 Signed By: <Electronically signed by Lauryn Owens MD> 06/13/23 0940 [facility] Work Phone: History and physical note Author Lauryn Owens [facility] August 30, 2023 10:25am Note Date/Time August 30, 2023 1 0:19am [facility] [address] [place] [address] Gastroenterology H&P Signed Patient: Gallito Fernandez MR#: [id number] : 1955 Acct:[id number] Age/Sex: 67 / F Adm Date: 3 Loc: Room: Type: [facility] Attending Dr: Lauryn Owens MD Copies to: NON STAFF Lauryn Owens MD~ Date of Service: 08/30/2023 HISTORY & PHYSICAL: Patient's history with special attention to the cardiovascular, pulmonary systems and the current problem was reviewed with the patient immediately prior to the procedure. Present medications and doses reviewed in the EMR. Allergies and pertinent laboratory tests were also reviewedat this time in the EMR. The physical examination, as below, was then performed. Indication, assessment and HPI: 67-year-old female with history of colonic polyps here for surveillance colonoscopy Family history of GI malignancy? No PHYSICAL EXAMINATION Mouth and Pharynx : Moist mucus membranes, normal dentition Cardiac: Regular rate, regular rhythm Pulmonary: Clear to auscultation bilaterally, no wheezing Neurological: Alert and oriented x3, no focal deficits noted Abdomen: Abdomen soft, non-tender REVIEW OF SYSTEMS Constitutional: Denies malaise, fevers Cardiovascular: Denies chest pain, palpitations Respiratory: Denies shortness of breath, wheezing Gastrointestinal: Per HPI Genitourinary: Denies dysuria, polyuria Musculoskeletal: Denies joint swelling, joint stiffness Neurological: Denies numbness, tingling Integumentary: Denies rashes, skin lesions Endocrine: Denies fatigue, weight loss Written informed consent obtained from the patient. Risks (including but not limited to perforation, infection, bloating, bleeding, need for emergent surgeryand loss of life), benefits and alternatives explained and questions answered. The patient verbalized understanding. Based on history patient is an appropriate candidate for the procedure. Lauryn Owens M.D. Documented By: Lauryn Owens MD 08/30/23 1016 Signed By: <Electronically signed by Lauryn Owens MD> 08/30/23 1025 [facility] Work Phone: Hospital Discharge instructions Additional Instructions DISCHARGE INSTRUCTIONS FOR COLONOSCOPY WHAT TO EXPECT: - You may feel full, gassy or cramping after your procedure. In some cases, this may be from a few hours to a day. Walking may help relieve the discomfort. - If you have polyp(s) removed you may note some minor bloody discharge after your first bowel movements. - You should begin to recover from anesthesia within 1 hour of the procedure, however may feel groggy for the next 24 hours. DO's AND DON'Ts: - Call your doctor right away if you have a hard abdomen, severe pain, are passing lots of bright red blood or clots. - Call your doctor if you develop any rashes, hives or difficulty breathing. - Let your doctor know if you have not had a bowel movement by 3 days after your procedure. - If you take 81 mg aspirin for your heart it is safe to resume this medication. - If you take other blood thinner medications your doctor will instruct you when these can safely be resumed. - Do NOT drive for 24 hours. - Do NOT operate machinery such as power tools, [employer] mowers, snow blowers, sewing machines, etc. for 24 hours. - Avoid alcoholic beverages and drugs for allergies, nerves, or sleep. - Do NOT stay alone. Do NOT leave your child unattended. - Do NOT make important personal or business decisions or sign any legal documents. - Eat solid foods and drink liquids in smaller amounts than usual until normal appetite returns. If you should experience an upset stomach, liquids high in sugar content (soda, Edgard-Aid, non-acid juices) are recommended. - You can resume normal activities tomorrow. FOLLOW UP & RECOMMENDATIONS: -Notify the doctor if you have any problems. -Repeat colonoscopy next available due to inadequate prep -Follow up with PCP. -Office number [phone]. [facility] Work Phone: Hospital Discharge instructions Additional Instructions DISCHARGE INSTRUCTIONS FOR COLONOSCOPY WHAT TO EXPECT: - You may feel full, gassy or cramping after your procedure. In some cases, this may be from a few hours to a day. Walking may help relieve the discomfort. - If you have polyp(s) removed you may note some minor bloody discharge after your first bowel movements. - You should begin to recover from anesthesia within 1 hour of the procedure, however may feel groggy for the next 24 hours. DO's AND DON'Ts: - Call your doctor right away if you have a hard abdomen, severe pain, are passing lots of bright red blood or clots. - Call your doctor if you develop any rashes, hives or difficulty breathing. - Let your doctor know if you have not had a bowel movement by 3 days after your procedure. - If you take 81 mg aspirin for your heart it is safe to resume this medication. - If you take other blood thinner medications your doctor will instruct you when these can safely be resumed. - Do NOT drive for 24 hours. - Do NOT operate machinery such as power tools, lawn mowers, snow blowers, sewing machines, etc. for 24 hours. - Avoid alcoholic beverages and drugs for allergies, nerves, or sleep. - Do NOT stay alone. Do NOT leave your child unattended. - Do NOT make important personal or business decisions or sign any legal documents. - Eat solid foods and drink liquids in smaller amounts than usual until normal appetite returns. If you should experience an upset stomach, liquids high in sugar content (soda, Edgard-Aid, non-acid juices) are recommended. - You can resume normal activities tomorrow. FOLLOW UP & RECOMMENDATIONS: -Notify the doctor if you have any problems. -Repeat colonoscopy in 6 months -Follow up with PCP. -Office number [phone]. [facility] Work Phone: Summary Purpose Family History Relationship Condition Age at Onset Recorded Date/T haris father Myocardial infarction Unknown Not Specified Cerebrovascular accident (CVA) Unknown Advance Directives Advance Directive Response Recorded Date/ Time Advance Directives No June 13, 2023 7:52am Chief Complaint and Reason for Visit Chief Complaint Screening Chief Complaint Screening Hx of Colon Polyps, Constipation Additional Source Comments INFORMATION SOURCE (unrecogn ized section and content) DATE CREATED AUTHOR 06/21/2022 [facility] dical Specialist DATE CREATED AUTHOR AUTHOR'S ORGANIZ ATION 02/11/[address] [facility] DATE CREATED AUTHOR AUTHOR'S ORGANIZ ATION 09/09/2023 [facility] DATE CREATED AUTHOR AUTHOR'S ORGANIZ ATION 01/22/2025 [facility] dical Specialists EPIC Care Teams (unrecognized sec tion and content) Team Status: Active Member Role Status Dates NON STAFF Primary Care Provider Active Team Status: Inactive Member Role Status Dates Lauryn Owens MD Attending Provider Active NON STAFF Primary Care Provider Active Team Status: Inactive Member Role Status Dates NON STAFF Primary Care Provider Active Lauryn Owens MD Attending Provider Active Head Of Operation And Logistics Relationship Specialty Start Date End Date Naeem Ruth MD [address] [facility] [address] [place] [address] PCP - Marcello CENTENO 10/28/21 Naeem Ruth MD [address] [facility] [address] [place] [address] PCP - General Family Medicine 04/05/23 Head Of Operation And Logistics Relationship Specialty Start Date End Date Naeem Ruth MD [address] [facility] [address] [place] [address] PCP - Marcello CENTENO 10/28/21 Naeem Ruth MD [address] [facility] [address] [place] [address] PCP - General Family Medicine 04/05/23 Head Of Operation And Logistics Relationship Specialty Start Date End Date Naeem Ruth MD [address] [facility] [address] [place] [address] PCP - Marcello CENTENO 10/28/21 Naeem Ruth MD [address] [facility] [address] [place] [address] PCP - General Family Medicine 04/05/23 Head Of Operation And Logistics Relationship Specialty Start Date End Date Naeem Ruth MD [address] [facility] [address] [place] [address] PCP - Marcello CENTENO 10/28/21 Naeem Ruth MD [address] [facility] [address] [place] [address] PCP - General Family Medicine 04/05/23 Head Of Operation And Logistics Relationship Specialty Start Date End Date Naeem Ruth MD [address] [facility] [address] [place] [address] PCP - Marcello CENTENO 10/28/21 Naeem Ruth MD [address] [facility] [address] [place] [address] PCP - General Family Medicine 04/05/23 Head Of Operation And Logistics Relationship Specialty Start Date End Date Naeem Ruth MD [address] [facility] [address] [place] [address] PCP Felipe Armendariz MA 10/28/21 Naeem Ruth MD [address] [facility] [address] [place] [address] PCP - General Family Medicine 04/05/23 Head Of Operation And Logistics Relationship Specialty Start Date End Date Naeem Ruth MD [address] [facility] [address] [place] [address] PCP - Marcello CENTENO 10/28/21 Naeem Ruth MD [address] [facility] [address] [place] [address] PCP - General Family Medicine 04/05/23 Head Of Operation And Logistics Relationship Specialty Start Date End Date Naeem Ruth MD [address] [facility] [address] [place] [address] PCP - Marcello CENTENO 10/28/21 Naeem Ruth MD [address] [facility] [address] [place] [address] PCP - General Family Medicine 04/05/23 Head Of Operation And Logistics Relationship Specialty Start Date End Date Naeem Ruth MD [address] [facility] [address] [place] [address] PCP - Marcello CENTENO 10/28/21 Naeem Ruth MD [address] [facility] [address] [place] [address] PCP - General Family Medicine 04/05/23 Head Of Operation And Logistics Relationship Specialty Start Date End Date Naeem Ruth MD [address] [facility] [address] [place] [address] PCP - Marcello CENTENO 10/28/21 Naeem Ruth MD [address] [facility] [address] [place] [address] PCP - General Family Medicine 04/05/23 Reason for Visit (unrecogniz ed section and content) Reason Onset Date Comments Med Refill 08/03/2024 Reason Comments next steps for dexa Reason Comments discuss dexa results Go over fosamax or prolia Reason Comments Suspicious Skin Lesion Specialty Diagnoses / Procedures Referred By Contac t Referred To Contact Dermatology Diagnoses Suspicious nevus Procedures ME OFFICE/OUTPATIENT NEW HIGH MDM 60 MINUTES Naeem Ruth MD [address] [facility] [address] [place] [address] Phone: tel: fax: Sunita Barragan MD [address] [facility] [address] [place] [address] Phone: tel: fax: Referral ID Status Reason Start Date Expiration Date V isits Requested Visits Authorized [id number] Closed Specialty Services Required 01/18/2025 07/17/2025 1 1 Reason Comments Seizures FOR RECORDS PERTAINING TO PATIENTS WHO ARE OR HAVE BEEN ENROLLED IN A CHEMICAL DEPENDENCY/SUBSTANCEABUSE PROGRAM, SOME INFORMATION MAY BE OMITTED. This clinical summary was aggregated from multiple sources. Caution should be exercised in using it in the provision of clinical care. This summary normalizes information from multiple sources, and as a consequence, information in this document may materially change the coding, format and clinical context of patient data. In addition, data may be omitted in some cases. CLINICAL DECISIONS SHOULD BE BASED ON THE PRIMARY CLINICAL RECORDS. [employer] provides no warranty or guarantee of the accuracy or completeness of information in this document.
--- NOTE | 2025-02-11 10:18 | MR_ITS ---
[facility] [place] [id number] Patient Name: AKOSUA HENAO MRN: [id number] date: 1955 Sex: F Assigned Patient Location: LAB Current Patient Location: LAB Accession/Order Number: [id number] Exam Date: 02/11/2025 14:18 Report Date: 02/11/2025 14:22 At the request of: VIKRAM FONTANA Procedure: MR head/brain wo/w con MRI the Brain with and without contrast TECHNIQUE: Multiplanar T1 and T2-weighted imaging of the brain. 20 cc of contrast administered HISTORY: Seizure. Migraine. COMPARISON: none VENTRICLES: Unremarkable BRAIN VOLUME: Generalized atrophy identified. BRAIN PARENCHYMAL SIGNAL INTENSITY: Scattered foci of increased T2/FLAIR signal intensity of the brain parenchyma is consistent with chronic small vessel ischemic changes. Small region of cystic encephalomalacia lateral temporoparietal region on the right BLEED: None MASS EFFECT: No mass effect DIFFUSION RESTRICTION: None GRADIENT ECHO PARENCHYMAL SIGNAL LOSS: None MIDBRAIN: The midbrain structures are unremarkable. BHARATH: Unremarkable MEDULLA: Unremarkable INTERNAL AUDITORY CANALS: Unremarkable SINUSES: Unremarkable ORBITS: Grossly unremarkable MASTOIDS: Unremarkable ENHANCEMENT: No pathologic enhancement. MR/MR head/brain wo/w con IMPRESSION: No acute intracranial process. Diffuse atrophy and chronic small vessel ischemic changes. No pathologic enhancement. Impression dictated by: Ady Castle M.D.02/11/2025 2:22 PM Dictation Location: [place] [address] Electronically authenticated by: [id number] Date: 02/11/2025 14:22
[2025-02-11 10:30] LABS: Estimated GFR (African America >60 (>=60 mL/min/1.73m^2); Estimated GFR (Non-African Ame 54 (>=60 mL/min/1.73m^2)
== END 2025-02-11 10:03 | disposition home or self-care (01) ==
LOC: LAB 10:03
PROVIDERS: PCP Family Medicine; Visit Provider Psychiatry & Neurology Neurology
DX: G40.009 Localization-related (focal) (partial) idiopathic epilepsy and epileptic syndromes with seizures of localized onset, not intractable, without status epilepticus (principal); Z87.820 Personal history of traumatic brain injury; G43.909 Migraine, unspecified, not intractable, without status migrainosus
CPT/HCPCS: 36415; 70553; 82565; A9575